=== PATIENT | female | born 1990 | race Caucasian/White ===

== ENCOUNTER 2021-08-01 11:22 | Emergency (ER) | payer OTHER ==
[~2021-08-01] VITALS: Ht 162.6 cm; Wt 113.0 kg
[2021-08-01] MEDS ORDERED: NS 1,000 ML IV ONE (12:05)
[2021-08-01] MEDS ORDERED: KETOROLAC 30 MG/ML 1ML VIAL IV ONE (12:05)
[2021-08-01] MEDS ORDERED: ISOVUE-370 76% 100ML VIAL As Ordered ONE (12:44)
[2021-08-01 12:54] LABS: BASO % 0.6 % (0.0-1.0); EOS # 0.1 10^3/uL (0.0-0.5); EOS % 2.5 % (0.0-3.0); HEMATOCRIT 41.8 % (36.0-47.0); HEMOGLOBIN 13.8 g/dl (12.0-15.5); LYMPH # 0.9 10^3/uL (1.5-5.0); LYMPH % 17.2 % (24.0-44.0); MEAN CORPUSCULAR VOLUME 87.8 fl (80.0-96.0); MONO # 0.7 10^3/uL (0.0-0.8); MONO % 13.2 % (2.0-8.0); NEUTROPHILS # 3.5 10^3/uL (1.5-8.5); NEUTROPHILS % 66.3 % (36.0-66.0); PLATELET COUNT, AUTOMATED 273 10^3/uL (150-450); RED BLOOD COUNT 4.76 10^6/uL (4.00-5.40); WHITE BLOOD COUNT 5.2 10^3/uL (4.0-10.0)
[2021-08-01 13:14] LABS: ALBUMIN 3.4 GM/DL (3.2-5.2); BILIRUBIN,DIRECT 0.1 MG/DL (0.0-0.2); BILIRUBIN,TOTAL 0.4 MG/DL (0.2-1.0); TOTAL PROTEIN 7.4 GM/DL (6.4-8.2)
[2021-08-01 13:30] LABS: HCG, SERUM QUALITATIVE NEGATIVE (NEGATIVE)
[2021-08-01 16:20] VITALS: BP 138/89
[2021-08-01 16:37] LABS: GC DNA AMPLIFICATION NEGATIVE (NEGATIVE)
== END 2021-08-01 16:25 | disposition home or self-care (01) ==
LOC: M ED 11:22
DX: N83.202 Unspecified ovarian cyst, left side (principal)
CPT/HCPCS: 36415; 74177; 76830; 76856; 80047; 80076; 81001; 83690; 84703; 85025; 87661; 93976; 96361; 96374; 99284; J1885; Q9967

== ENCOUNTER 2022-06-30 21:16 | Emergency (ER) | payer OTHER ==
[~2022-06-30] VITALS: Ht 162.6 cm; Wt 96.6 kg
[2022-06-30 21:19] VITALS: BP 168/108
[2022-07-01] MEDS ORDERED: KETOROLAC TROMETHAMINE 10 MG TAB PO ONE (01:05)
[2022-07-01 01:10] LABS: HEMATOCRIT 36.8 % (36.0-47.0); HEMOGLOBIN 12.2 g/dl (12.0-15.5); MEAN CORPUSCULAR HEMOGLOBIN 30.5 pg (27.0-33.0); MEAN CORPUSCULAR HGB CONC 33.2 g/dl (32.0-36.5); PLATELET COUNT, AUTOMATED 302 10^3/uL (150-450); WHITE BLOOD COUNT 11.8 10^3/uL (4.0-10.0)
[2022-07-01] MEDS ORDERED: AUGMENTIN 875 MG TAB PO ONE (02:15)
[2022-07-01] MEDS ORDERED: AMOX875T2 PO (02:18)
== END 2022-07-01 02:41 | disposition home or self-care (01) ==
LOC: M ED 21:16
DX: L03.124 Acute lymphangitis of left upper limb (principal); R59.1 Generalized enlarged lymph nodes; Z98.890 Other specified postprocedural states; F12.10 Cannabis abuse, uncomplicated

== ENCOUNTER 2024-07-03 08:18 | Emergency (ER) | payer BC, OTHER ==
[~2024-07-03] VITALS: Ht 162.6 cm; Wt 109.4 kg
[~2024-07-03 08:18] MED LIST: AMOX875T2 PO
[2024-07-03] MEDS ORDERED: SERT-141 PO (08:56)
[2024-07-03 11:33] LABS: BASO # 0.1 10^3/uL (0.0-0.2); BASO % 1.6 % (0.0-1.0); EOS # 0.8 10^3/uL (0.0-0.5); EOS % 10.8 % (0.0-3.0); HEMATOCRIT 40.2 % (36.0-47.0); HEMOGLOBIN 13.3 g/dl (12.0-15.5); LYMPH # 1.9 10^3/uL (1.5-5.0); LYMPH % 25.9 % (24.0-44.0); MEAN CORPUSCULAR HGB CONC 33.1 g/dl (32.0-36.5); MEAN CORPUSCULAR VOLUME 90.7 fl (80.0-96.0); MONO # 0.7 10^3/uL (0.0-0.8); MONO % 9.4 % (2.0-8.0); NEUTROPHILS # 3.8 10^3/uL (1.5-8.5); PLATELET COUNT, AUTOMATED 322 10^3/uL (150-450); RED BLOOD COUNT 4.43 10^6/uL (4.00-5.40); WHITE BLOOD COUNT 7.3 10^3/uL (4.0-10.0)
[2024-07-03 11:59] LABS: HCG, SERUM QUALITATIVE NEGATIVE (NEGATIVE)
[2024-07-03] MEDS: KETOROLAC 30 MG/ML 1ML VIAL IV ONE (13:43)
[2024-07-03] MEDS: ACETAMINOPHEN 500 MG TAB PO ONE (13:43)
[2024-07-03 14:15] VITALS: BP 129/63; TEMP 98.5; O2SAT 98
== END 2024-07-03 14:27 | disposition home or self-care (01) ==
LOC: M ED 08:18
DX: M94.0 Chondrocostal junction syndrome [Tietze] (principal)
CPT/HCPCS: 71046; 80047; 81001; 84703; 85025; 85379; 96374; 99284; J1885

== ENCOUNTER → 2025-05-12 | Outpatient (CLI) | payer OTHER ==
[~2025-05-12] MED LIST changes: +SERT-141 PO
== END ==
LOC: M PLARAD 14:48
PROVIDERS: ATTEND Nurse Practitioner Family
DX: M47.26 Other spondylosis with radiculopathy, lumbar region (principal)